=== PATIENT | male | born 1955 | race Hispanic/Latino ===

== ENCOUNTER 2021-09-22 21:05 | Inpatient (IN) | payer OTHER ==
[~2021-09-22] VITALS: Ht 175.3 cm; Wt 71.6 kg
[2021-09-22 21:46] LABS: BASOPHILS % (AUTO) 0.8 % (0.0-5.0); EOSINOPHILS % (AUTO) 1.4 % (0.0-8.0); HEMATOCRIT 38.4 % (42-54); LYMPHOCYTES % (AUTO) 19.8 % (21.0-51.0); MEAN CORPUSCULAR HEMOGLOBIN 31.9 pg (27.0-33.0); MEAN CORPUSCULAR HGB CONC 34.6 g/dL (32.0-36.0); MEAN CORPUSCULAR VOLUME 92.1 fL (79-99); MONOCYTES % (AUTO) 7.1 % (3.0-13.0); NEUTROPHILS % (AUTO) 70.5 % (40.0-77.0); PLATELET COUNT (AUTO) 241 K/uL (130-400); RED BLOOD CELL COUNT(AUTO) 4.17 MIL/uL (4.50-6.20); WHITE BLOOD COUNT (AUTO) 8.5 K/uL (4.8-10.8)
[2021-09-22 22:00] LABS: CREATININE 1.2 mg/dL (0.5-1.5); POTASSIUM 4.1 mmol/L (3.5-5.1)
[2021-09-22 22:07] LABS: ALBUMIN 3.3 g/dL (3.5-5.0); BILIRUBIN,TOTAL 0.7 mg/dL (0.2-1.0); MAGNESIUM 2.3 mg/dL (1.80-2.40); TOTAL PROTEIN, SERUM 7.7 g/dL (6.0-8.3)
[2021-09-22 22:09] LABS: B-TYPE NATRIURETIC PEPTIDE 28 pg/mL (0-100)
[2021-09-22] MEDS ORDERED: ASPIRIN 325MG TAB PO ONE (23:00)
[2021-09-22 23:23] LABS: APPEARANCE,URINE Clear (CLEAR); BILIRUBIN,URINE Negative (NEGATIVE); COLOR,URINE Yellow (YELLOW); GLUCOSE, URINE (UA) Negative (NEGATIVE); KETONES,URINE Negative (NEGATIVE); LEUKOCYTE ESTERASE ,URINE Negative (NEGATIVE); NITRATE,URINE Negative (NEGATIVE); OCCULT BLOOD,URINE Negative (NEGATIVE); PROTEIN,URINE Negative (NEGATIVE); UROBILINOGEN,URINE 0.2 mg/dL (0.2-1.0)
[2021-09-22] MEDS ORDERED: LACTULOSE 20 GM/30 ML UDCUP PO PRN (23:30)
[2021-09-22] MEDS ORDERED: ONDANSETRON 4MG INJ IV PRN (23:30)
[2021-09-22] MEDS ORDERED: ACETAMINOPHEN 325 MG TAB PO PRN ×2 (23:30)
[2021-09-22 23:32] LABS: AMPHET/METH SCREEN,URINE NEGATIVE (NEGATIVE); BARBITURATE SCREEN, URINE NEGATIVE (NEGATIVE); BENZODIAZEPINES SCREEN,URINE NEGATIVE (NEGATIVE); CANNABINOID SCREEN,URINE POSITIVE (NEGATIVE); COCAINE SCREEN,URINE NEGATIVE (NEGATIVE); OPIATE SCREEN,URINE NEGATIVE (NEGATIVE); PHENCYCLIDINE SCREEN,URINE NEGATIVE (NEGATIVE)
[2021-09-22] MEDS ORDERED: IOHEXOL-350 75 ML VIAL IV ONE (23:51)
[2021-09-22 23:53] LABS: THYROID STIMULATING HORMONE 2.87 uIU/mL (0.36-3.74)
[2021-09-23] MEDS: ENOXAPARIN SODIUM 80 MG/0.8 ML SQ SCH ×2 (00:54→09:44)
[2021-09-23 03:11] LABS: BASOPHILS % (AUTO) 0.8 % (0.0-5.0); EOSINOPHILS % (AUTO) 2.1 % (0.0-8.0); HEMATOCRIT 38.6 % (42-54); LYMPHOCYTES % (AUTO) 25.5 % (21.0-51.0); MEAN CORPUSCULAR HEMOGLOBIN 31.9 pg (27.0-33.0); MEAN CORPUSCULAR HGB CONC 34.5 g/dL (32.0-36.0); MEAN CORPUSCULAR VOLUME 92.6 fL (79-99); NEUTROPHILS % (AUTO) 64.2 % (40.0-77.0); PLATELET COUNT (AUTO) 226 K/uL (130-400); RED BLOOD CELL COUNT(AUTO) 4.17 MIL/uL (4.50-6.20); RED CELL DISTRIBUTION WIDTH 14.1 % (11.0-15.5); WHITE BLOOD COUNT (AUTO) 8.6 K/uL (4.8-10.8)
[2021-09-23 03:18] LABS: POTASSIUM 4.1 mmol/L (3.5-5.1)
[2021-09-23 08:00] VITALS: BP 132/81
[2021-09-23] MEDS ORDERED: PANTOPRAZOLE 40 MG TAB DR PO SCH (09:00)
[2021-09-23] MEDS: FAMOTIDINE 20MG TAB PO SCH ×2 (09:43→21:50)
[2021-09-23] MEDS: ASPIRIN 81 MG EC TAB PO SCH (09:43)
[2021-09-23] MEDS: METOPROLOL TARTRATE 25 MG TAB PO SCH ×2 (09:43→21:50)
[2021-09-23 12:00] VITALS: BP 122/73
[2021-09-23 16:00] VITALS: BP 137/71
[2021-09-23] MEDS: SODIUM HYPOCHLORITE 0.5% [FULL STRENGTH] 473 ML TOPICAL SOLN TP SCH (18:27)
[2021-09-23 20:00] VITALS: BP 108/60
[2021-09-23] MEDS: ATORVASTATIN 20 MG TABLET PO SCH (21:49)
[2021-09-24] VITALS (15 sets, daily range): BP systolic 93–142; BP diastolic 59–72
[2021-09-24 05:08] LABS: BASOPHILS % (AUTO) 0.9 % (0.0-5.0); EOSINOPHILS % (AUTO) 3.1 % (0.0-8.0); HEMATOCRIT 39.2 % (42-54); LYMPHOCYTES % (AUTO) 24.2 % (21.0-51.0); MEAN CORPUSCULAR HEMOGLOBIN 31.9 pg (27.0-33.0); MEAN CORPUSCULAR HGB CONC 33.9 g/dL (32.0-36.0); MONOCYTES % (AUTO) 10.4 % (3.0-13.0); NEUTROPHILS % (AUTO) 61.1 % (40.0-77.0); PLATELET COUNT (AUTO) 227 K/uL (130-400); RED BLOOD CELL COUNT(AUTO) 4.17 MIL/uL (4.50-6.20); RED CELL DISTRIBUTION WIDTH 13.9 % (11.0-15.5); WHITE BLOOD COUNT (AUTO) 6.5 K/uL (4.8-10.8)
[2021-09-24 05:14] LABS: POTASSIUM 3.9 mmol/L (3.5-5.1)
[2021-09-24 05:18] LABS: INR 1.05 (0.85-1.15); PROTHROMBIN TIME 11.4 SEC (9.6-11.6)
[2021-09-24 05:19] LABS: PARTIAL THROMBOPLASTIN TIME 25.8 SEC (26.3-35.5)
[2021-09-24] MEDS: METOPROLOL TARTRATE 25 MG TAB PO SCH ×2 (09:03→20:11)
[2021-09-24] MEDS: FAMOTIDINE 20MG TAB PO SCH ×2 (09:03→20:11)
[2021-09-24] MEDS ORDERED: GLYCOPYRROLATE 0.2 MG/ML 5 ML VIAL ONE (12:30)
[2021-09-24] MEDS ORDERED: PROPOFOL 10 MG/ML 20ML VIAL IV ONE (12:31)
[2021-09-24] MEDS ORDERED: ATROPINE 1MG SYG IVP ONE (12:32)
[2021-09-24] MEDS: ASPIRIN 81 MG EC TAB PO SCH (16:08)
[2021-09-24] MEDS ORDERED: CEFTRIAXONE 1G VIAL IVP SCH (19:00)
[2021-09-24] MEDS: ATORVASTATIN 20 MG TABLET PO SCH (20:11)
[2021-09-25 03:57] VITALS: BP 97/53
[2021-09-25 05:01] LABS: HEMATOCRIT 37.5 % (42-54); MEAN CORPUSCULAR HEMOGLOBIN 30.5 pg (27.0-33.0); MEAN CORPUSCULAR VOLUME 95.4 fL (79-99); RED BLOOD CELL COUNT(AUTO) 3.93 MIL/uL (4.50-6.20); RED CELL DISTRIBUTION WIDTH 13.7 % (11.0-15.5); WHITE BLOOD COUNT (AUTO) 7.7 K/uL (4.8-10.8)
[2021-09-25 05:06] LABS: POTASSIUM 3.8 mmol/L (3.5-5.1)
[2021-09-25 08:00] VITALS: BP 106/64
[2021-09-25] MEDS: ASPIRIN 81 MG EC TAB PO SCH (09:52)
[2021-09-25] MEDS: FAMOTIDINE 20MG TAB PO SCH ×2 (09:52→21:31)
[2021-09-25] MEDS: SODIUM HYPOCHLORITE 0.5% [FULL STRENGTH] 473 ML TOPICAL SOLN TP SCH (09:52)
[2021-09-25] MEDS: METOPROLOL TARTRATE 25 MG TAB PO SCH ×2 (09:52→21:31)
[2021-09-25 11:48] VITALS: BP 101/63
[2021-09-25 16:52] VITALS: BP 101/65
[2021-09-25] MEDS ORDERED: APIX5TAB PO (17:26)
[2021-09-25] MEDS ORDERED: PANT40SU PO (17:26)
[2021-09-25] MEDS: LEVOFLOXACIN 750 MG TABLET PO SCH (18:21)
[2021-09-25 20:23] VITALS: BP 108/62
[2021-09-25] MEDS: APIXABAN 5 MG TABLET PO SCH (21:31)
[2021-09-25] MEDS: ATORVASTATIN 20 MG TABLET PO SCH (21:31)
[2021-09-26 00:15] VITALS: BP 108/64
[2021-09-26 03:14] VITALS: BP 90/52
[2021-09-26 07:30] VITALS: BP 100/62
[2021-09-26] MEDS: FAMOTIDINE 20MG TAB PO SCH (08:53)
[2021-09-26] MEDS: APIXABAN 5 MG TABLET PO SCH (08:53)
[2021-09-26] MEDS: ASPIRIN 81 MG EC TAB PO SCH (08:53)
[2021-09-26] MEDS: METOPROLOL TARTRATE 25 MG TAB PO SCH (08:53)
[2021-09-26] MEDS: SODIUM HYPOCHLORITE 0.5% [FULL STRENGTH] 473 ML TOPICAL SOLN TP SCH (09:15)
[2021-09-26 11:00] VITALS: BP 101/66
[2021-09-26] MEDS: LEVOFLOXACIN 750 MG TABLET PO SCH (14:04)
[2021-09-26] MEDS ORDERED: LEVO750T46 PO (16:22)
== END 2021-09-26 18:30 | disposition home or self-care (01) | DRG 369 ==
LOC: EDH 21:05 → OBSVTOIN 21:06 → EDHIP 21:06 → 3DH 09-23 03:09
PROVIDERS: ADMIT Internal Medicine; ATTEND Internal Medicine
PROC: 0DB58ZX Excision of Esophagus, Via Natural or Artificial Opening Endoscopic, Diagnostic (ICD-10-PCS; principal; 2021-09-24)
PROC: 0DB68ZX Excision of Stomach, Via Natural or Artificial Opening Endoscopic, Diagnostic (ICD-10-PCS; 2021-09-24)
DX: I85.00 Esophageal varices without bleeding (principal); I82.411 Acute embolism and thrombosis of right femoral vein; E87.1 Hypo-osmolality and hyponatremia; L97.919 Non-pressure chronic ulcer of unspecified part of right lower leg with unspecified severity; I82.431 Acute embolism and thrombosis of right popliteal vein; E78.5 Hyperlipidemia, unspecified; F19.10 Other psychoactive substance abuse, uncomplicated; I25.10 Atherosclerotic heart disease of native coronary artery without angina pectoris; F17.210 Nicotine dependence, cigarettes, uncomplicated; G89.29 Other chronic pain; K22.70 Barrett's esophagus without dysplasia; K21.00 Gastro-esophageal reflux disease with esophagitis, without bleeding; F14.10 Cocaine abuse, uncomplicated; Z59.00 Homelessness unspecified; Z91.19 Patient's noncompliance with other medical treatment and regimen; I25.2 Old myocardial infarction; Z91.14 Patient's other noncompliance with medication regimen
CPT/HCPCS: 36415; 43239; 71045; 71275; 74176; 80048; 80053; 80061; 80305; 81003; 82550; 83036; 83735; 83880; 84443; 84484; 85025; 85027; 85378; 85610; 85730; 87070; 87076; 87077; 87186; 93005; 93971; 99152; A4606; G0378; J0461; J0696; J1650; J2704; J3490; Q9967

== ENCOUNTER 2021-10-09 04:53 | Emergency (ER) | payer OTHER ==
[~2021-10-09] VITALS: Ht 175.3 cm; Wt 77.1 kg
[~2021-10-09 04:53] MED LIST: APIX5TAB PO; LEVO750T46 PO; PANT40SU PO
[2021-10-09] MEDS ORDERED: 0.9%NACL 1000ML 1,000 ML IV ONE (05:00)
[2021-10-09] MEDS ORDERED: FAMOTIDINE 20MG VIAL IV ONE (05:00)
[2021-10-09 05:31] LABS: BASOPHILS % (AUTO) 1.1 % (0.0-5.0); EOSINOPHILS % (AUTO) 4.5 % (0.0-8.0); HEMATOCRIT 38.8 % (42-54); MEAN CORPUSCULAR HEMOGLOBIN 31.6 pg (27.0-33.0); MEAN CORPUSCULAR VOLUME 95.8 fL (79-99); MONOCYTES % (AUTO) 6.6 % (3.0-13.0); NEUTROPHILS % (AUTO) 64.5 % (40.0-77.0); PLATELET COUNT (AUTO) 180 K/uL (130-400); RED BLOOD CELL COUNT(AUTO) 4.05 MIL/uL (4.50-6.20); RED CELL DISTRIBUTION WIDTH 14.5 % (11.0-15.5); WHITE BLOOD COUNT (AUTO) 8.8 K/uL (4.8-10.8)
[2021-10-09 05:43] LABS: ALBUMIN 3.3 g/dL (3.5-5.0); BILIRUBIN,TOTAL 0.5 mg/dL (0.2-1.0); CREATININE 0.9 mg/dL (0.5-1.5); MAGNESIUM 2.1 mg/dL (1.80-2.40); POTASSIUM 4.6 mmol/L (3.5-5.1); TOTAL PROTEIN, SERUM 7.5 g/dL (6.0-8.3)
[2021-10-09] MEDS ORDERED: FAMO-136 PO (06:12)
[2021-10-09 06:13] VITALS: BP 111/55
== END 2021-10-09 06:46 | disposition home or self-care (01) ==
LOC: EDH 04:53
DX: K29.70 Gastritis, unspecified, without bleeding (principal); I25.10 Atherosclerotic heart disease of native coronary artery without angina pectoris
CPT/HCPCS: 36415; 71045; 80053; 83690; 83735; 84484; 85025; 93005; 96361; 96374; 99285; J3490; J7030